=== PATIENT | female | born 1995 | race Asian ===

== ENCOUNTER 2017-09-03 00:05 | Emergency (ER) | payer OTHER ==
[~2017-09-03] VITALS: Ht 163 cm; Wt 79.5 kg
[~2017-09-03 00:05] MED LIST: CEPHALEXIN500 M1 PO; NORCO 325 MG-51 TAB PO
[2017-09-03 00:10] VITALS: BP 134/90; PULSE 95; TEMP 97.1
== END 2017-09-03 00:56 | disposition home or self-care (01) ==
LOC: COL.ER 00:05
DX: T23.101A Burn of first degree of right hand, unspecified site, initial encounter (principal); X12.XXXA Contact with other hot fluids, initial encounter; Y92.009 Unspecified place in unspecified non-institutional (private) residence as the place of occurrence of the external cause